=== PATIENT | female | born 1960 | race Caucasian/White ===

== ENCOUNTER 2017-06-12 14:15 | Outpatient (CLI) | payer BC | END 2017-06-12 14:16 | disposition home or self-care (01) | LOC: BICMAMMO 14:15 | PROVIDERS: ATTEND Internal Medicine Rheumatology | DX: M81.0 Age-related osteoporosis without current pathological fracture (principal); M85.88 Other specified disorders of bone density and structure, other site; M85.852 Other specified disorders of bone density and structure, left thigh | CPT/HCPCS: 77080 ==

== ENCOUNTER 2017-08-11 11:21 | Outpatient (CLI) | payer BC | END 2017-08-11 11:22 | disposition home or self-care (01) | LOC: BICMAMMO 11:21 | PROVIDERS: ATTEND Obstetrics & Gynecology | DX: Z12.31 Encounter for screening mammogram for malignant neoplasm of breast (principal) | CPT/HCPCS: 77063; 77067 ==

== ENCOUNTER 2018-08-25 11:34 | Outpatient (CLI) | payer BC ==
--- NOTE | 2018-08-25 12:09 | MMO ---
Bilateral MAMMO Bilat Screen [facility]. CLINICAL HISTORY: Patient is 57 years old and is seen for screening. The patient has no family history of breast cancer. The patient has a history of Skin cancer at age 50. VIEWS: The views performed were: bilateral craniocaudal with tomosynthesis and bilateral mediolateral oblique with tomosynthesis. FILMS COMPARED: The present examination has been compared to prior imaging studies performed at [facility] on 01/27/2008, 01/27/2009, 01/31/2010, 02/28/2011, 03/04/2012, 03/05/2013, 03/11/2014, 04/24/2015, 07/25/2016 and 08/11/2017, and at [facility] on 12/06/2005 and 12/08/2006. MAMMOGRAM FINDINGS: There are scattered fibroglandular densities. There are no suspicious masses, suspicious calcifications, or new areas of architectural distortion. IMPRESSION: THERE IS NO MAMMOGRAPHIC EVIDENCE OF MALIGNANCY. A ROUTINE FOLLOW-UP MAMMOGRAM IN 1 YEAR IS RECOMMENDED. THE RESULTS OF THIS EXAM WERE SENT TO THE PATIENT. ACR BI-RADS Category 1 - Negative MAMMOGRAPHY NOTE: 1. A negative mammogram report should not delay a biopsy if a dominant of clinically suspicious mass is present. 2. Approximately 10% to 15% of breast cancers are not detected by mammography. 3. Adenosis and dense breasts may obscure an underlying neoplasm.
== END 2018-08-25 11:35 | disposition home or self-care (01) ==
LOC: BICMAMMO 11:34
PROVIDERS: ATTEND Obstetrics & Gynecology
DX: Z12.31 Encounter for screening mammogram for malignant neoplasm of breast (principal); Z85.828 Personal history of other malignant neoplasm of skin
CPT/HCPCS: 77063; 77067

== ENCOUNTER 2019-07-06 14:13 | Outpatient (CLI) | payer BC ==
--- NOTE | 2019-07-06 15:11 | BD ---
Exam: DEXA Bone Density 07/06/19 HISTORY: Postmenopausal screening for osteoporosis. Lumbar Spine: BMD (g/cm2) T-SCORE Z-SCORE L1 0.792 -1.3 -0.6 L2 0.805 -2.0 -0.7 L3 0.825 -2.3 -0.9 L4 0.839 -2.0 -0.6 L1-L4 0.820 -2.1 -0.8 Femoral Neck: 0.693 -1.4 -0.2 Total Femur: 0.832 -0.9 0.0 The ten year fracture risk for a major osteoporotic fracture is 7.4% and for hip fracture is 0.6%. Impression: Osteopenia. POS: [facility]
== END 2019-07-06 14:14 | disposition home or self-care (01) ==
LOC: BICMAMMO 14:13
PROVIDERS: ATTEND Internal Medicine Rheumatology
DX: M81.0 Age-related osteoporosis without current pathological fracture (principal); M85.89 Other specified disorders of bone density and structure, multiple sites
CPT/HCPCS: 77080

== ENCOUNTER 2019-11-02 12:28 | Outpatient (CLI) | payer BC ==
--- NOTE | 2019-11-02 12:59 | MMO ---
Bilateral MAMMO Bilat Screen [facility]. CLINICAL HISTORY: Patient is 58 years old and is seen for screening. The patient has no family history of breast cancer. The patient has a history of Skin cancer at age 50. VIEWS: The views performed were: bilateral craniocaudal with tomosynthesis and bilateral mediolateral oblique with tomosynthesis. FILMS COMPARED: The present examination has been compared to prior imaging studies performed at [facility] on 04/24/2015, 07/25/2016, 08/11/2017 and 08/25/2018. This study has been interpreted with the assistance of computer-aided detection. MAMMOGRAM FINDINGS: There are scattered fibroglandular densities. There is a new oval mass measuring 7 millimeters seen in the posterior region of the left breast at 2 o'clock. In the right breast, there are no suspicious masses, calcifications or areas of architectural distortion. IMPRESSION: NEW MASS IN THE LEFT BREAST REQUIRES ADDITIONAL EVALUATION. AN ULTRASOUND EXAM IS RECOMMENDED. ADDITIONAL IMAGING. THE RESULTS OF THIS EXAM WERE SENT TO THE PATIENT. ACR BI-RADS Category 0 - Incomplete: Need additional imaging evaluation. [facility] will notify the patient of the need for additional imaging services. MAMMOGRAPHY NOTE: 1. A negative mammogram report should not delay a biopsy if a dominant of clinically suspicious mass is present. 2. Approximately 10% to 15% of breast cancers are not detected by mammography. 3. Adenosis and dense breasts may obscure an underlying neoplasm. Reported by: BROOKE BLANCO MD Electonically Signed: [id number]
== END 2019-11-02 12:29 | disposition home or self-care (01) ==
LOC: BICMAMMO 12:28
PROVIDERS: ATTEND Obstetrics & Gynecology
DX: Z12.31 Encounter for screening mammogram for malignant neoplasm of breast (principal); N63.21 Unspecified lump in the left breast, upper outer quadrant; Z85.828 Personal history of other malignant neoplasm of skin
CPT/HCPCS: 77063; 77067

== ENCOUNTER 2019-11-09 08:59 | Outpatient (CLI) | payer BC ==
--- NOTE | 2019-11-09 09:36 | ULT ---
EXAM: US Breast Limited Lt PROVIDED CLINICAL HISTORY: Abnormal screening mammogram COMPARISON: Screening mammogram 11/02/2019 FINDINGS: Limited sonographic interrogation of the upper outer left breast in the region of mammographic concer n was performed. There is a simple cyst present in this location measuring approximately 4 mm in greatest dimension. Measuring the mammographic abnormality today produces a maximum dimension of abou t 5 mm which, allowing for differences in technique, corresponds in size. IMPRESSION: Simple cyst accounts for the mammographic finding. Return to screening. BI-RADS 2 -- benign findings
== END 2019-11-09 09:00 | disposition home or self-care (01) ==
LOC: BICMAMMO 08:59
PROVIDERS: ATTEND Obstetrics & Gynecology
DX: R92.8 Other abnormal and inconclusive findings on diagnostic imaging of breast (principal); N60.09 Solitary cyst of unspecified breast

== ENCOUNTER 2020-11-14 13:23 | Outpatient (CLI) | payer BC | END 2020-11-14 13:24 | disposition home or self-care (01) | LOC: BICMAMMO 13:23 | PROVIDERS: ATTEND Obstetrics & Gynecology | DX: Z12.31 Encounter for screening mammogram for malignant neoplasm of breast (principal); Z85.828 Personal history of other malignant neoplasm of skin | CPT/HCPCS: 77063; 77067 ==

== ENCOUNTER 2021-08-06 10:47 | Outpatient (CLI) | payer BC | END 2021-08-06 10:48 | disposition home or self-care (01) | LOC: BICMAMMO 10:47 | PROVIDERS: ATTEND Internal Medicine Rheumatology | DX: M81.0 Age-related osteoporosis without current pathological fracture (principal); M85.89 Other specified disorders of bone density and structure, multiple sites | CPT/HCPCS: 77080 ==

== ENCOUNTER 2021-10-05 13:42 | Observation (INO) | payer BC ==
[~2021-10-05 13:42] MED LIST: Iopamidol-370 76% 500 ML 1 ML ONE
[2021-10-05 14:11] LABS: #Basophils 0.1 thou/uL (0.0-0.2); #Eosinphils 0.1 thou/uL (0.0-0.7); #Lymphocytes 1.9 thou/uL (1.20-3.40); #Monocytes 0.5 thou/uL (0.11-0.59); #Neutrophils 6.7 thou/uL (1.40-6.50); %Basophils 0.6 % (0.0-1.0); %Eosinophils 1.1 % (0.0-10.0); %Lymphocytes 20.6 % (21.0-51.0); %Monocytes 5.8 % (0.0-10.0); Hemoglobin 12.3 g/dL (12.0-16.0); Mean Corpuscular HGB CONC 32.7 g/dL (32.0-36.0); Mean Corpuscular Hemoglobin 33.3 pg (27.0-31.0); Mean Platelet Volume 7.6 fL (7.4-10.4); Platelet Count 257 thou/uL (130-400); RBC Distribution Width 11.4 % (11.5-14.5); Red Blood Cell (RBC) Count 3.69 mill/uL (4.20-5.40); White Blood Cell (WBC) Count 9.3 thou/uL (4.8-10.8)
[2021-10-05 14:24] LABS: ALT (SGPT) 18 U/L (8-55); AST (SGOT) 17 U/L (5-34); Albumin 3.9 g/dL (3.5-5.0); Alkaline Phosphatase 71 U/L (40-110); Anion Gap 14 mmol/L (10-20); BUN (Urea Nitrogen) 17 mg/dL (9.8-20.1); Bilirubin, Total 0.7 mg/dL (0.2-1.2); Calc. Creatinine Clearance 0 mL/min (70-130); Calcium 9.4 mg/dL (7.8-10.44); Carbon Dioxide 27 mmol/L (22-29); Chloride 104 mmol/L (98-107); Globulin 2.8 g/dL (2.4-3.5); Glucose 175 mg/dL (70-105); Potassium 3.6 mmol/L (3.5-5.1); Protein, Total 6.7 g/dL (6.0-8.3); Sodium 141 mmol/L (136-145)
[2021-10-05 14:45] LABS: Lipase 32 U/L (8-78); Magnesium 2.1 mg/dL (1.6-2.6)
[2021-10-05 15:00] LABS: Bilirubin Negative (Negative); Blood, Urine Negative (Negative); Clarity Clear (Clear); Glucose, Urine (Dipstick) 50 mg/dL (Negative); Ketone, Urine Negative (Negative); Leukocyte Negative Leu/uL (Negative); Nitrite Negative (Negative); Protein, Urine (Dipstick) Negative (Neg-Trace); Urobilinogen Normal mg/dL (Less than 2); pH, Urine 5.5 (5.0-9.0)
[2021-10-05] MEDS ORDERED: metroNIDAZOLE 500 MG/100 ML BAG ONE (17:31)
[2021-10-05] MEDS ORDERED: Morphine 2 MG/ML VIAL SLOW IVP PRN (18:10)
[2021-10-05 18:22] LABS: Troponin I Less than 0.010 ng/mL (< 0.028)
[2021-10-05] MEDS: Sodium Chloride 0.9% 1,000 ML IV SCH (20:48)
[2021-10-05 21:19] VITALS: BMI 27.4
[2021-10-05 21:23] LABS: Troponin I Less than 0.010 ng/mL (< 0.028)
[2021-10-05] MEDS: Enoxaparin Sodium 40 MG/0.4 ML SYRINGE SC SCH (22:13)
[2021-10-05] MEDS: Pantoprazole 40 MG VIAL IVP SCH (22:14)
[2021-10-05] MEDS ORDERED: Venlafaxine HCl XR 75 MG CAP PO SCH (23:00)
[2021-10-05] MEDS ORDERED: Atorvastatin Calcium 20 MG TAB PO SCH (23:00)
[2021-10-06] MEDS: metroNIDAZOLE 500 MG in Premix Bag 1 BAG IVPB SCH ×3 (00:23→16:03)
[2021-10-06 05:17] LABS: #Eosinphils 0.1 thou/uL (0.0-0.7); #Lymphocytes 2.3 thou/uL (1.20-3.40); #Monocytes 0.6 thou/uL (0.11-0.59); #Neutrophils 4.4 thou/uL (1.40-6.50); %Basophils 0.5 % (0.0-1.0); %Eosinophils 1.9 % (0.0-10.0); %Lymphocytes 30.2 % (21.0-51.0); %Monocytes 8.3 % (0.0-10.0); %Neutrophils 59.2 % (42.0-75.0); Hemoglobin 10.6 g/dL (12.0-16.0); Mean Corpuscular HGB CONC 32.7 g/dL (32.0-36.0); Mean Corpuscular Hemoglobin 33.5 pg (27.0-31.0); Mean Platelet Volume 7.4 fL (7.4-10.4); Platelet Count 215 thou/uL (130-400); RBC Distribution Width 11.4 % (11.5-14.5); Red Blood Cell (RBC) Count 3.17 mill/uL (4.20-5.40); White Blood Cell (WBC) Count 7.5 thou/uL (4.8-10.8)
[2021-10-06 05:26] LABS: Hemoglobin A1c 5.3 % (4.0-6.0)
[2021-10-06 05:44] LABS: Anion Gap 9 mmol/L (10-20); BUN (Urea Nitrogen) 11 mg/dL (9.8-20.1); Calc. Creatinine Clearance 93 mL/min (70-130); Carbon Dioxide 24 mmol/L (22-29); Chloride 110 mmol/L (98-107); Glucose 100 mg/dL (70-105); Potassium 3.8 mmol/L (3.5-5.1); Sodium 139 mmol/L (136-145)
[2021-10-06] MEDS: Sodium Chloride 0.9% 1,000 ML IV SCH ×2 (06:00→14:56)
[2021-10-06] MEDS: Losartan 25 MG TAB PO SCH (08:28)
[2021-10-06] MEDS: Acetaminophen 325 MG TAB PO PRN (16:03)
[2021-10-06] MEDS: Ondansetron PF 4 MG/2 ML Vial IVP PRN (17:19)
[2021-10-06] MEDS ORDERED: Venlafaxine HCl XR 75 MG CAP PO SCH (21:00)
[2021-10-06] MEDS ORDERED: Atorvastatin Calcium 20 MG TAB PO SCH (21:00)
[2021-10-06] MEDS: Enoxaparin Sodium 40 MG/0.4 ML SYRINGE SC SCH (21:06)
[2021-10-06] MEDS: Pantoprazole 40 MG VIAL IVP SCH (21:06)
[2021-10-07] MEDS: metroNIDAZOLE 500 MG in Premix Bag 1 BAG IVPB SCH ×2 (01:23→08:31)
[2021-10-07] MEDS: Ondansetron PF 4 MG/2 ML Vial IVP PRN (01:23)
[2021-10-07] MEDS: Acetaminophen 325 MG TAB PO PRN (01:24)
[2021-10-07 05:11] LABS: #Eosinphils 0.1 thou/uL (0.0-0.7); #Lymphocytes 2.2 thou/uL (1.20-3.40); #Monocytes 0.3 thou/uL (0.11-0.59); #Neutrophils 2.1 thou/uL (1.40-6.50); %Basophils 0.8 % (0.0-1.0); %Eosinophils 2.1 % (0.0-10.0); %Lymphocytes 45.7 % (21.0-51.0); %Monocytes 6.2 % (0.0-10.0); %Neutrophils 45.2 % (42.0-75.0); Hemoglobin 10.6 g/dL (12.0-16.0); Mean Corpuscular HGB CONC 33.5 g/dL (32.0-36.0); Mean Corpuscular Hemoglobin 34.1 pg (27.0-31.0); Mean Platelet Volume 7.3 fL (7.4-10.4); Platelet Count 210 thou/uL (130-400); RBC Distribution Width 11.3 % (11.5-14.5); Red Blood Cell (RBC) Count 3.11 mill/uL (4.20-5.40); White Blood Cell (WBC) Count 4.7 thou/uL (4.8-10.8)
[2021-10-07 05:32] LABS: Anion Gap 9 mmol/L (10-20); BUN (Urea Nitrogen) 7 mg/dL (9.8-20.1); Calc. Creatinine Clearance 93 mL/min (70-130); Calcium 7.6 mg/dL (7.8-10.44); Carbon Dioxide 25 mmol/L (22-29); Chloride 112 mmol/L (98-107); Glucose 98 mg/dL (70-105); Potassium 3.6 mmol/L (3.5-5.1); Sodium 142 mmol/L (136-145)
[2021-10-07] MEDS: Losartan 25 MG TAB PO SCH (08:31)
[2021-10-07 11:32] VITALS: BP 139/77; TEMP 97.9
== END 2021-10-07 14:25 | disposition home or self-care (01) ==
LOC: ERS 13:42 → 2SW 17:36
PROVIDERS: ADMIT Internal Medicine; ATTEND Nurse Practitioner Acute Care
DX: K57.32 Diverticulitis of large intestine without perforation or abscess without bleeding (principal); R55 Syncope and collapse; I10 Essential (primary) hypertension; E78.5 Hyperlipidemia, unspecified; M81.0 Age-related osteoporosis without current pathological fracture; Z79.899 Other long term (current) drug therapy; Z88.1 Allergy status to other antibiotic agents
CPT/HCPCS: 36415; 71045; 74177; 80048; 80053; 81003; 82607; 82746; 83036; 83605; 83690; 83735; 84484; 85025; 87040; 93005; 94760; 96361; 96365; 96366; 96368; 96372; 96375; 96376; C9113; G0378; J1650; J1956; J2405; J7050; Q9967; U0003; U0005

== ENCOUNTER 2022-01-01 10:44 | Outpatient (CLI) | payer BC | END 2022-01-01 10:45 | disposition home or self-care (01) | LOC: BICMAMMO 10:44 | PROVIDERS: ATTEND Obstetrics & Gynecology | DX: Z12.31 Encounter for screening mammogram for malignant neoplasm of breast (principal); Z85.828 Personal history of other malignant neoplasm of skin | CPT/HCPCS: 77063; 77067 ==

== ENCOUNTER 2022-06-07 08:55 | Observation (INO) | payer BC ==
[2022-06-07 09:44] LABS: #Eosinphils 0.1 thou/uL (0.0-0.7); #Lymphocytes 1.9 thou/uL (1.20-3.40); #Monocytes 0.6 thou/uL (0.11-0.59); #Neutrophils 3.1 thou/uL (1.40-6.50); %Basophils 0.7 % (0.0-1.0); %Lymphocytes 32.8 % (21.0-51.0); %Neutrophils 54.6 % (42.0-75.0); Hemoglobin 13.3 g/dL (12.0-16.0); Mean Corpuscular HGB CONC 33.6 g/dL (32.0-36.0); Mean Corpuscular Volume 98.3 fl (78.0-98.0); Mean Platelet Volume 7.3 fL (7.4-10.4); Platelet Count 295 10x3/uL (130-400); RBC Distribution Width 11.3 % (11.5-14.5); Red Blood Cell (RBC) Count 4.03 mill/uL (4.20-5.40); White Blood Cell (WBC) Count 5.7 10x3/uL (4.8-10.8)
[2022-06-07 10:01] LABS: ALT (SGPT) 34 U/L (8-55); AST (SGOT) 31 U/L (5-34); Albumin 4.1 g/dL (3.4-4.8); Alkaline Phosphatase 104 U/L (40-110); Anion Gap 13 mmol/L (10-20); BUN (Urea Nitrogen) 26 mg/dL (9.8-20.1); Bilirubin, Total 0.4 mg/dL (0.2-1.2); Calc. Creatinine Clearance 0 mL/min (70-130); Calcium 9.9 mg/dL (7.8-10.44); Carbon Dioxide 26 mmol/L (23-31); Chloride 104 mmol/L (98-107); Estimated GFR 86; Globulin 2.9 g/dL (2.4-3.5); Glucose 100 mg/dL (80-115); Potassium 4.2 mmol/L (3.5-5.1); Sodium 139 mmol/L (136-145)
[2022-06-07 10:56] LABS: Bilirubin Negative (Negative); Blood, Urine Negative (Negative); Clarity Clear (Clear); Glucose, Urine (Dipstick) Normal (Negative); Ketone, Urine Negative (Negative); Leukocyte Negative Leu/uL (Negative); Nitrite Negative (Negative); Protein, Urine (Dipstick) Negative (Neg-Trace); Specific Gravity, Urine 1.007 (1.002-1.036); Urobilinogen Normal mg/dL (Less than 2)
[2022-06-07 12:11] VITALS: BMI 28.4
[2022-06-07] MEDS ORDERED: hydrALAZINE 20 MG/ML VIAL SLOW IVP PRN (13:43)
[2022-06-07] MEDS ORDERED: Atorvastatin Calcium 20 MG TAB PO SCH (21:00)
[2022-06-07] MEDS ORDERED: Venlafaxine XR 37.5 MG CAP PO SCH (21:00)
[2022-06-07] MEDS: Acetaminophen 325 MG TAB PO PRN (21:06)
[2022-06-08 05:24] LABS: Anion Gap 11 mmol/L (10-20); BUN (Urea Nitrogen) 18 mg/dL (9.8-20.1); Calc. Creatinine Clearance 95 mL/min (70-130); Calcium 9.4 mg/dL (7.8-10.44); Carbon Dioxide 25 mmol/L (23-31); Cardiac Risk 2.7 (Less than 4.5); Chloride 109 mmol/L (98-107); Cholesterol 156 mg/dl (< 200 Desired); Estimated GFR 99; Glucose 99 mg/dL (80-115); HDL Cholesterol 57 mg/dL (>60 Neg Risk); LDL Cholesterol, Calculated 84 mg/dL; Sodium 141 mmol/L (136-145); Triglycerides 75 mg/dL (Less than 150)
[2022-06-08] MEDS: Acetaminophen 325 MG TAB PO PRN (08:58)
[2022-06-08] MEDS ORDERED: Aspirin 325 mg Enteric Coated Tablet PO SCH (09:00)
[2022-06-08] MEDS ORDERED: ALPRAZolam 0.25 MG TAB PO PRN (14:07)
[2022-06-08 16:21] VITALS: BP 120/66; TEMP 98.2
== END 2022-06-08 18:53 | disposition home or self-care (01) ==
LOC: ERS 08:55 → 2NO 10:59
PROVIDERS: ADMIT Family Medicine; ATTEND Family Medicine
DX: R55 Syncope and collapse (principal); E78.5 Hyperlipidemia, unspecified; I10 Essential (primary) hypertension; M81.0 Age-related osteoporosis without current pathological fracture; F39 Unspecified mood [affective] disorder; R00.1 Bradycardia, unspecified; Z79.83 Long term (current) use of bisphosphonates; Z79.899 Other long term (current) drug therapy; Z88.1 Allergy status to other antibiotic agents; Z20.822 Contact with and (suspected) exposure to COVID-19
CPT/HCPCS: 36415; 70551; 71045; 80048; 80053; 80061; 81003; 84443; 84484; 85025; 93005; 93880; 95712; 95819; 95957; G0378; U0003; U0005

== ENCOUNTER 2022-07-16 08:50 | Emergency (ER) | payer BC | END 2022-07-16 11:10 | disposition home or self-care (01) | LOC: ERS 08:50 | DX: M54.42 Lumbago with sciatica, left side (principal); E78.5 Hyperlipidemia, unspecified; I10 Essential (primary) hypertension | CPT/HCPCS: 72100; 72170 ==

== ENCOUNTER 2022-08-27 11:56 | Outpatient (CLI) | payer BC | END 2022-08-27 11:57 | disposition home or self-care (01) | LOC: SCSRAD 11:56 | PROVIDERS: ATTEND Internal Medicine Rheumatology | DX: M81.0 Age-related osteoporosis without current pathological fracture (principal) | CPT/HCPCS: 72070 ==

== ENCOUNTER 2023-04-15 10:41 | Outpatient (CLI) | payer BC | END 2023-04-15 10:42 | disposition home or self-care (01) | LOC: BICMAMMO 10:41 | PROVIDERS: ATTEND Physician Assistant | DX: Z12.31 Encounter for screening mammogram for malignant neoplasm of breast (principal) | CPT/HCPCS: 77063; 77067 ==

== ENCOUNTER 2024-05-18 10:56 | Outpatient (CLI) | payer BC | END 2024-05-18 10:57 | disposition home or self-care (01) | LOC: BICMAMMO 10:56 | PROVIDERS: ATTEND Physician Assistant | DX: Z12.31 Encounter for screening mammogram for malignant neoplasm of breast (principal); Z85.828 Personal history of other malignant neoplasm of skin | CPT/HCPCS: 77063; 77067 ==